=== PATIENT | male | born 1955 | race Caucasian/White ===

== ENCOUNTER 2016-08-19 12:48 | Inpatient (IN) | payer BC ==
[~2016-08-19] VITALS: Ht 180.3 cm; Wt 135.9 kg
[2016-08-19] MEDS ORDERED: ASPIRIN 81 MG TABLET CHEW PO ONE (13:30)
[2016-08-19] MEDS ORDERED: LABETALOL 5MG/ML, 20ML IVPush ONE (13:30)
[2016-08-19] MEDS ORDERED: LABETALOL 5MG/ML, 20ML ONE (13:39)
[2016-08-19] MEDS ORDERED: ASPIRIN 81 MG TABLET CHEW ONE (13:39)
[2016-08-19] MEDS ORDERED: PLEASE ENTER ALLERGIES MC SCH ×2 (14:00)
[2016-08-19 14:19] LABS: BLOOD UREA NITROGEN 18 mg/dL (7-18)
[2016-08-19 14:25] LABS: ASPARTATE AMINO TRANSFERASE 31 U/L (15-37)
[2016-08-19 14:28] LABS: IS PT STATUS REG ER OR PRE ER? YES
[2016-08-19] MEDS ORDERED: OMNIPAQUE 350 MG/ML, 150 ML BOTTLE ONE (15:49)
[2016-08-19] MEDS ORDERED: FUROSEMIDE 20 MG/2 ML IV ONE (16:30)
[2016-08-19] MEDS ORDERED: ONDANSETRON 2MG/ML, 2ML IVPush PRN (17:00)
[2016-08-19] MEDS ORDERED: LABETALOL 5MG/ML, 20ML IVPush PRN (17:00)
[2016-08-19] MEDS ORDERED: FUROSEMIDE 40 MG/4 ML IV ONE (17:00)
[2016-08-19] MEDS ORDERED: ONDANSETRON ODT 4 MG PO PRN (17:00)
[2016-08-19] MEDS ORDERED: FUROSEMIDE 40 MG/4 ML ONE (17:26)
[2016-08-19] MEDS ORDERED: ENOXAPARIN 40 MG/0.4 ML ONE (17:26)
[2016-08-19] MEDS: ENOXAPARIN 40 MG/0.4 ML SQ SCH (17:43)
[2016-08-19] MEDS: METOPROLOL TARTRATE 25 MG TABLET PO SCH (19:57)
[2016-08-19 20:07] VITALS: BP 156/104
[2016-08-19 20:13] VITALS: BP 153/105
[2016-08-19 20:21] LABS: IS PT STATUS REG ER OR PRE ER? NO
[2016-08-20 02:57] VITALS: BP 148/99
[2016-08-20 02:59] LABS: ASPARTATE AMINO TRANSFERASE 30 U/L (15-37); BLOOD UREA NITROGEN 21 mg/dL (7-18)
[2016-08-20 03:05] LABS: IS PT STATUS REG ER OR PRE ER? NO
[2016-08-20 05:38] VITALS: BP 156/106
[2016-08-20] MEDS: METOPROLOL TARTRATE 25 MG TABLET PO SCH ×2 (05:42→17:38)
[2016-08-20] MEDS: ASPIRIN 81 MG TABLET EC PO SCH (05:42)
[2016-08-20 07:52] VITALS: BP 138/95
[2016-08-20] MEDS ORDERED: MAGNESIUM SULFATE PMX 2GM/50ML 50 ML IV ONE (09:30)
[2016-08-20] MEDS ORDERED: REGADENOSON 0.4 MG/5 ML SYRINGE ONE (09:47)
[2016-08-20] MEDS: POTASSIUM CHLORIDE 20 MEQ TAB.ER.PRT PO SCH (13:04)
[2016-08-20] MEDS: FUROSEMIDE 40 MG/4 ML IV SCH (13:05)
[2016-08-20] MEDS: LISINOPRIL 5 MG TABLET PO SCH (13:05)
[2016-08-20] MEDS: INSULIN ASPART 100 UNITS/ML, PEN SQ-INSULIN SCH ×3 (13:13→20:42)
[2016-08-20 14:46] VITALS: BP 136/85
[2016-08-20] MEDS: ENOXAPARIN 40 MG/0.4 ML SQ SCH (17:39)
[2016-08-20 18:25] VITALS: BP 150/93
[2016-08-20] MEDS: SIMVASTATIN 10 MG TABLET PO SCH (20:42)
[2016-08-21] MEDS ORDERED: PNEUMOCOCCAL 23 VACCINE IM-VACC ONE (02:00)
[2016-08-21 02:59] VITALS: BP 122/81
[2016-08-21] MEDS: METOPROLOL TARTRATE 25 MG TABLET PO SCH (05:34)
[2016-08-21] MEDS: ASPIRIN 81 MG TABLET EC PO SCH (05:34)
[2016-08-21 06:02] LABS: ASPARTATE AMINO TRANSFERASE 26 U/L (15-37); BLOOD UREA NITROGEN 23 mg/dL (7-18)
[2016-08-21 06:59] VITALS: BP 138/86
[2016-08-21] MEDS: INSULIN ASPART 100 UNITS/ML, PEN SQ-INSULIN SCH ×4 (07:00→20:36)
[2016-08-21] MEDS ORDERED: LISINOPRIL 5 MG TABLET PO SCH (09:00)
[2016-08-21] MEDS: POTASSIUM CHLORIDE 20 MEQ TAB.ER.PRT PO SCH (10:01)
[2016-08-21] MEDS: LISINOPRIL 5 MG TABLET PO SCH (10:02)
[2016-08-21] MEDS: FUROSEMIDE 40 MG/4 ML IV SCH (10:02)
[2016-08-21 13:14] VITALS: BP 120/87
[2016-08-21] MEDS: CARVEDILOL 6.25 MG TABLET PO SCH (17:22)
[2016-08-21] MEDS: ENOXAPARIN 40 MG/0.4 ML SQ SCH (17:22)
[2016-08-21 19:00] VITALS: BP 124/81
[2016-08-21] MEDS: SIMVASTATIN 10 MG TABLET PO SCH (20:36)
[2016-08-22 02:04] VITALS: BP 123/81
[2016-08-22] MEDS: ASPIRIN 81 MG TABLET EC PO SCH (05:52)
[2016-08-22] MEDS: CARVEDILOL 6.25 MG TABLET PO SCH ×2 (05:52→17:33)
[2016-08-22] MEDS: INSULIN ASPART 100 UNITS/ML, PEN SQ-INSULIN SCH ×4 (08:13→21:00)
[2016-08-22] MEDS: LISINOPRIL 5 MG TABLET PO SCH (08:23)
[2016-08-22] MEDS: FUROSEMIDE 40 MG/4 ML IV SCH (08:23)
[2016-08-22] MEDS: POTASSIUM CHLORIDE 20 MEQ TAB.ER.PRT PO SCH (08:23)
[2016-08-22 08:50] VITALS: BP 122/84
[2016-08-22 13:42] VITALS: BP 120/77
[2016-08-22] MEDS: ENOXAPARIN 40 MG/0.4 ML SQ SCH (17:33)
[2016-08-22 19:23] VITALS: BP 128/78
[2016-08-22] MEDS: SIMVASTATIN 10 MG TABLET PO SCH (21:36)
[2016-08-23 02:53] VITALS: BP 134/78
[2016-08-23 05:24] LABS: BLOOD UREA NITROGEN 24 mg/dL (7-18)
[2016-08-23] MEDS: ASPIRIN 81 MG TABLET EC PO SCH (06:24)
[2016-08-23] MEDS: CARVEDILOL 6.25 MG TABLET PO SCH ×2 (06:25→17:14)
[2016-08-23] MEDS: INSULIN ASPART 100 UNITS/ML, PEN SQ-INSULIN SCH ×4 (07:01→21:00)
[2016-08-23 08:00] VITALS: BP 137/101
[2016-08-23] MEDS: FUROSEMIDE 40 MG/4 ML IV SCH (09:06)
[2016-08-23] MEDS: POTASSIUM CHLORIDE 20 MEQ TAB.ER.PRT PO SCH (09:06)
[2016-08-23] MEDS: LISINOPRIL 5 MG TABLET PO SCH (09:07)
[2016-08-23 14:30] VITALS: BP 155/101
[2016-08-23] MEDS: FUROSEMIDE 40 MG TABLET PO SCH (17:15)
[2016-08-23] MEDS: ENOXAPARIN 40 MG/0.4 ML SQ SCH (17:17)
[2016-08-23 20:08] VITALS: BP 112/72
[2016-08-23] MEDS: SIMVASTATIN 10 MG TABLET PO SCH (21:00)
[2016-08-24] MEDS ORDERED: IBUPROFEN 200 MG TABLET PO PRN
[2016-08-24 02:33] VITALS: BP 137/84
[2016-08-24] MEDS: CARVEDILOL 6.25 MG TABLET PO SCH (06:45)
[2016-08-24] MEDS: ASPIRIN 81 MG TABLET EC PO SCH (06:45)
[2016-08-24] MEDS: INSULIN ASPART 100 UNITS/ML, PEN SQ-INSULIN SCH ×2 (09:20→11:25)
[2016-08-24 09:30] VITALS: BP 113/77
[2016-08-24] MEDS: LISINOPRIL 5 MG TABLET PO SCH (09:33)
[2016-08-24] MEDS: POTASSIUM CHLORIDE 20 MEQ TAB.ER.PRT PO SCH (09:33)
[2016-08-24] MEDS: FUROSEMIDE 40 MG TABLET PO SCH (09:34)
[2016-08-24] MEDS ORDERED: FURO40TA6 PO (11:00)
[2016-08-24] MEDS ORDERED: LISI5TAB7 PO (11:00)
[2016-08-24] MEDS ORDERED: POTA20TA6 PO (11:00)
[2016-08-24] MEDS ORDERED: CARV6.2512 PO (11:00)
[2016-08-24] MEDS ORDERED: SIMV10TA3 PO (11:00)
[2016-08-24 12:35] VITALS: BP 128/86
== END 2016-08-24 17:02 | disposition home health service (06) | DRG 291 ==
LOC: ED 15:14 → EDIP 16:09 → 5SO 18:32 → DCLOUNGE 08-24 16:33
PROVIDERS: ADMIT Internal Medicine; ATTEND Internal Medicine
DX: I11.0 Hypertensive heart disease with heart failure (principal); J96.01 Acute respiratory failure with hypoxia; J98.11 Atelectasis; Z68.41 Body mass index [BMI] 40.0-44.9, adult; E44.0 Moderate protein-calorie malnutrition; I50.41 Acute combined systolic (congestive) and diastolic (congestive) heart failure; I44.7 Left bundle-branch block, unspecified; E66.01 Morbid (severe) obesity due to excess calories; E83.42 Hypomagnesemia; I27.2 Other secondary pulmonary hypertension; R73.03 Prediabetes; R10.13 Epigastric pain; J44.9 Chronic obstructive pulmonary disease, unspecified; Z90.49 Acquired absence of other specified parts of digestive tract; Z88.5 Allergy status to narcotic agent; Z80.9 Family history of malignant neoplasm, unspecified; Z87.891 Personal history of nicotine dependence
CPT/HCPCS: 36415; 71010; 71275; 78452; 80048; 80053; 80061; 81003; 82962; 83036; 83735; 83880; 84443; 84484; 85025; 87324; 90732; 93005; 93017; 93970; 96374; C8929; J1650; J1940; J2785; Q9967; A9502; C9898; J3475

== ENCOUNTER 2020-04-01 13:53 | Inpatient (IN) | payer BC, OTHER ==
[~2020-04-01] VITALS: Ht 180.3 cm; Wt 125.4 kg
[~2020-04-01 13:53] MED LIST: CARV6.2512 PO; FURO40TA6 PO; LISI5TAB7 PO; POTA20TA6 PO; SIMV10TA18 PO
--- NOTE | 2020-04-01 14:24 | NUR ---
Assumed care of patient. C/O abdominal distention and SOB on exertion. Hx CHF, but has been off meds for 3 years. C/O bilateral pedal edema. Placed on NIBP, pulse ox and cardiac specialist. Family member at bedside. Will continue to monitor.
[2020-04-01 14:49] LABS: BASOPHILS % (AUTO) 1 % (0-1); EOSINOPHILS % (AUTO) 3 % (1-7); LYMPHOCYTES % (AUTO) 29 % (22-44); MEAN CORPUSCULAR HEMOGLOBIN 31.1 pg (27.5-34.5); MEAN CORPUSCULAR HGB CONC 33.8 g/dL (33.2-36.2); MEAN PLATELET VOLUME 7.4 fL (7.4-10.4); MONOCYTES % (AUTO) 9 % (2-9); NEUTROPHILS % (AUTO) 58 % (42-75); PLATELET COUNT 183 x10^3/uL (130-400); RED BLOOD COUNT 5.37 x10^6/uL (4.38-5.82); RED CELL DISTRIBUTION WIDTH 14.7 % (9.4-14.8)
--- NOTE | 2020-04-01 14:53 | NUR ---
Report to SAHIL Black.
--- NOTE | 2020-04-01 14:55 | NUR ---
Report from SAHIL Duarte. Assumed care.
[2020-04-01 14:59] LABS: ALANINE AMINOTRANSFERASE 22 U/L (12-78); ALBUMIN 2.9 g/dL (3.4-5.0); ANION GAP 4 mmol/L (5-15); CALCIUM 8.6 mg/dL (8.5-10.1); CHLORIDE 108 mmol/L (98-107); CREATININE 1.09 mg/dL (0.7-1.3)
[2020-04-01 15:03] LABS: ALKALINE PHOSPHATASE 78 U/L (45-117); BILIRUBIN,TOTAL 1.2 mg/dL (0.2-1.0); TOTAL PROTEIN 7.2 g/dL (6.4-8.2)
[2020-04-01 15:13] LABS: MD NO
--- NOTE | 2020-04-01 15:29 | NUR ---
Pts room air sat dropped to 89% on room air. Pt placed back on 02 nasal cannula 2 L
[2020-04-01] MEDS ORDERED: FUROSEMIDE 40 MG/4 ML ONE (15:52)
[2020-04-01] MEDS ORDERED: SODIUM CHLORIDE FLUSH 10ML SYR IVF ONE (16:00)
[2020-04-01] MEDS ORDERED: FUROSEMIDE 40 MG/4 ML IV ONE (16:00)
--- NOTE | 2020-04-01 16:19 | NUR ---
RN at bedside. IV started, Lasix given.
--- NOTE | 2020-04-01 16:37 | NUR ---
Admitting MD at bedside.
[2020-04-01] MEDS ORDERED: BACLOFEN 10 MG TABLET PO PRN (17:00)
[2020-04-01] MEDS ORDERED: ONDANSETRON ODT 4 MG PO PRN (17:00)
[2020-04-01] MEDS ORDERED: GUAIFENESIN/DM 200-20MG, 10ML UDC PO PRN (17:00)
[2020-04-01] MEDS ORDERED: BUTALB/APAP/CAFFEINE 50MG/325MG/40MG PO PRN ×2 (17:00)
[2020-04-01] MEDS ORDERED: LABETALOL 5MG/ML, 20ML IVPush PRN (17:00)
[2020-04-01] MEDS ORDERED: ENALAPRILAT 1.25 MG/ML, 2ML IVPush PRN (17:00)
[2020-04-01] MEDS ORDERED: ACETAMINOPHEN 325 MG TABLET PO PRN (17:00)
[2020-04-01] MEDS ORDERED: ONDANSETRON 2MG/ML, 2ML IVPush PRN (17:00)
[2020-04-01] MEDS: FUROSEMIDE 40 MG/4 ML IV SCH (17:00)
[2020-04-01] MEDS ORDERED: ENOXAPARIN 40 MG/0.4 ML ONE (18:15)
[2020-04-01] MEDS: ENOXAPARIN 40 MG/0.4 ML SQ SCH ×2 (18:18→18:47)
--- NOTE | 2020-04-01 20:20 | NUR ---
Dinner delivered to pt.
[2020-04-01] MEDS ORDERED: MELATONIN 5 MG TABLET ONE (21:08)
[2020-04-01] MEDS: MELATONIN 5 MG TABLET PO SCH (21:09)
--- NOTE | 2020-04-01 21:11 | NUR ---
Melatonin given, lights turned down, readjusted bed for pt. Pt ate sandwich and fruit for dinner. Denies needs at this time.
--- NOTE | 2020-04-01 21:43 | NUR ---
BREAK RN FOR PRIMARY RN ALEX. PT RESTING IN POSITION OF COMFORT. WATCHING TV. PULSE OX 90-92% RA, VSS. FALL PRECAUTIONS IN PLACE. SIDE RAILS UPX2. WILL CONTINUE TO MONITOR. PT REMAINS TELE HOLD IN ED, AWAITING ROOM ASSIGNMENT ON FLOOR. CALL LIGHT IN HAND. DENIES NEED TO USE RESTROOM
--- NOTE | 2020-04-01 22:23 | NUR ---
BEDSIDE REPORT AND TRANSFER OF CARE BACK TO PRIMARY SAHIL JOHNSON AT THIS TIME.
--- NOTE | 2020-04-01 23:08 | NUR ---
Pt up to bedside urinal
--- NOTE | 2020-04-01 23:13 | NUR ---
RN at bedside. Pt denies needs at this time.
[2020-04-01 23:14] LABS: TROPONIN I 0.024 ng/mL (0.000-0.045)
--- NOTE | 2020-04-01 23:51 | NUR ---
Pt resting, eyes closed, equal chest rise and fall noted.
--- NOTE | 2020-04-01 23:52 | NUR ---
IV removed, hemostasis achieved, IV catheter tip intact.
--- NOTE | 2020-04-02 00:10 | NUR ---
RN at bedside. Lasix given. Antibiotics infusing. Pt provided urinal and instructed to use call light to call for assistance.
--- NOTE | 2020-04-02 00:14 | NUR ---
Pt's 02 sat dropped to 84% on 3L nasal cannula- RN at bedside, pt sleeping, snowing, breathing out of mouth. Pt awakened easily. Increased oxygen to 4L and pt awake, 02 increased to 97%
--- NOTE | 2020-04-02 00:19 | NUR ---
Replaced nasal cannula with oxymask.
--- NOTE | 2020-04-02 01:26 | NUR ---
Pt resting, eyes closed. Equal chest rise and fall noted.
--- NOTE | 2020-04-02 02:32 | NUR ---
Pt resting, eyes closed. Equal chest rise and fall noted.
--- NOTE | 2020-04-02 05:46 | NUR ---
PT RESTING IN BED, PT HAS NO COMPLAINTS AT THIS TIME. PT ON MONITOR WITH PT VSS
[2020-04-02 06:06] LABS: BASOPHILS % (AUTO) 1 % (0-1); EOSINOPHILS % (AUTO) 3 % (1-7); LYMPHOCYTES % (AUTO) 32 % (22-44); MEAN CORPUSCULAR HEMOGLOBIN 31.2 pg (27.5-34.5); MEAN CORPUSCULAR HGB CONC 33.6 g/dL (33.2-36.2); MEAN PLATELET VOLUME 7.5 fL (7.4-10.4); MONOCYTES % (AUTO) 10 % (2-9); NEUTROPHILS % (AUTO) 54 % (42-75); PLATELET COUNT 201 x10^3/uL (130-400); RED BLOOD COUNT 5.71 x10^6/uL (4.38-5.82)
[2020-04-02 06:08] LABS: MD NO
[2020-04-02 06:24] LABS: CHLORIDE 105 mmol/L (98-107)
[2020-04-02 06:29] LABS: ALBUMIN 3.4 g/dL (3.4-5.0); ANION GAP 4 mmol/L (5-15); CALCIUM 9.2 mg/dL (8.5-10.1); CREATININE 1.28 mg/dL (0.7-1.3)
--- NOTE | 2020-04-02 07:04 | NUR ---
REC'D REPORT FROM SAHIL ALBA. PT SLEEPING IN BED. VSS. OXYGEN IN PLACE
[2020-04-02] MEDS ORDERED: FUROSEMIDE 40 MG/4 ML ONE (07:43)
[2020-04-02] MEDS: FUROSEMIDE 40 MG/4 ML IV SCH ×2 (07:48→18:20)
--- NOTE | 2020-04-02 07:48 | NUR ---
pt states he is comfortable in the ER [facility] and declines a hospital bed at this time. pt resting in bed. tv on. vss.
--- NOTE | 2020-04-02 08:08 | NUR ---
sent request to [facility] for vasotec per admitting doc request.
--- NOTE | 2020-04-02 08:12 | NUR ---
pt taken to stress test before medication could be sent down.
--- NOTE | 2020-04-02 08:15 | NUR ---
rec'd call from [facility]. vasotec is backordered. told to use labetelol. will recheck bp upon return from stress test.
[2020-04-02] MEDS ORDERED: REGADENOSON 0.4 MG/5 ML SYRINGE ONE (08:21)
[2020-04-02 08:32] LABS: FREE T4 (FREE THYROXINE) 0.91 ng/dL (0.76-1.46)
[2020-04-02] MEDS: SENNA/DOCUSATE TABLET PO SCH (09:00)
--- NOTE | 2020-04-02 09:50 | NUR ---
returns from stress test
--- NOTE | 2020-04-02 09:57 | NUR ---
pt was not placed back on oxygen after returning from stress test. room air sat was 84%
--- NOTE | 2020-04-02 09:58 | NUR ---
pt given meal tray.
--- NOTE | 2020-04-02 12:01 | NUR ---
PT SITTING AT BEDSIDE ON PHONE
[2020-04-02 13:48] VITALS: BP 138/87
[2020-04-02 18:19] VITALS: BP 126/84
[2020-04-02 19:42] VITALS: BP 137/92
[2020-04-02] MEDS: MELATONIN 5 MG TABLET PO SCH (20:32)
[2020-04-03 02:42] VITALS: BP 124/80
[2020-04-03 07:01] VITALS: BP 137/87
[2020-04-03] MEDS: SENNA/DOCUSATE TABLET PO SCH (09:00)
[2020-04-03 09:51] VITALS: BP 145/97
[2020-04-03] MEDS: FUROSEMIDE 40 MG/4 ML IV SCH ×2 (09:52→18:10)
[2020-04-03 14:44] VITALS: BP 144/91
[2020-04-03] MEDS: ENOXAPARIN 40 MG/0.4 ML SQ SCH (17:00)
[2020-04-03 18:06] VITALS: BP 144/93
[2020-04-03] MEDS: LISINOPRIL 5 MG TABLET PO SCH (18:09)
[2020-04-03] MEDS: CARVEDILOL 3.125 MG TABLET PO SCH (18:09)
[2020-04-03 18:35] VITALS: BP 149/97
[2020-04-03] MEDS: MELATONIN 5 MG TABLET PO SCH (19:50)
[2020-04-04 00:42] VITALS: BP 115/75
[2020-04-04] MEDS: CARVEDILOL 3.125 MG TABLET PO SCH ×2 (05:27→17:02)
[2020-04-04 07:47] VITALS: BP 107/63
[2020-04-04] MEDS: FUROSEMIDE 40 MG/4 ML IV SCH ×3 (08:30→17:02)
[2020-04-04] MEDS: SENNA/DOCUSATE TABLET PO SCH (08:30)
[2020-04-04] MEDS: LISINOPRIL 5 MG TABLET PO SCH (08:31)
[2020-04-04] MEDS: SPIRONOLACTONE 25 MG TABLET PO SCH (08:31)
[2020-04-04 14:07] VITALS: BP 104/73
[2020-04-04] MEDS: ENOXAPARIN 40 MG/0.4 ML SQ SCH (16:39)
[2020-04-04 20:26] VITALS: BP 93/66
[2020-04-04] MEDS: MELATONIN 5 MG TABLET PO SCH (21:00)
[2020-04-05 03:47] VITALS: BP 130/84
[2020-04-05] MEDS: CARVEDILOL 3.125 MG TABLET PO SCH (05:54)
[2020-04-05 06:34] LABS: CREATININE 1.34 mg/dL (0.7-1.3)
[2020-04-05 08:21] VITALS: BP 132/91
[2020-04-05] MEDS: FUROSEMIDE 40 MG/4 ML IV SCH (08:39)
[2020-04-05] MEDS: SPIRONOLACTONE 25 MG TABLET PO SCH (08:39)
[2020-04-05] MEDS: SENNA/DOCUSATE TABLET PO SCH (08:40)
[2020-04-05] MEDS: LISINOPRIL 5 MG TABLET PO SCH (08:40)
[2020-04-05] MEDS ORDERED: LISI5TAB7 PO (12:06)
[2020-04-05] MEDS ORDERED: SPIR25TA PO (12:06)
[2020-04-05] MEDS ORDERED: FURO40TA6 PO (12:06)
[2020-04-05] MEDS ORDERED: CARV3.1212 PO (12:06)
[2020-04-05 13:47] LABS: ALANINE AMINOTRANSFERASE 24 U/L (12-78); ALBUMIN 3.2 g/dL (3.4-5.0); ANION GAP 4 mmol/L (5-15); CALCIUM 9.1 mg/dL (8.5-10.1); CHLORIDE 100 mmol/L (98-107); CHOLESTEROL, TOTAL 183 mg/dL (140-239); CREATININE 1.25 mg/dL (0.7-1.3); TRIGLYCERIDES 244 mg/dL (50-200); VLDL CHOLESTEROL 49 mg/dL (0-25)
[2020-04-05 13:49] LABS: BASOPHILS % (AUTO) 1 % (0-1); EOSINOPHILS % (AUTO) 3 % (1-7); LYMPHOCYTES % (AUTO) 29 % (22-44); MEAN CORPUSCULAR HGB CONC 33.9 g/dL (33.2-36.2); MEAN PLATELET VOLUME 7.8 fL (7.4-10.4); MONOCYTES % (AUTO) 9 % (2-9); NEUTROPHILS % (AUTO) 58 % (42-75); PLATELET COUNT 255 x10^3/uL (130-400); RED BLOOD COUNT 5.81 x10^6/uL (4.38-5.82); RED CELL DISTRIBUTION WIDTH 14.8 % (9.4-14.8)
[2020-04-05 13:52] LABS: ALKALINE PHOSPHATASE 91 U/L (45-117); BILIRUBIN,TOTAL 2.3 mg/dL (0.2-1.0); CHOL/HDL RATIO 4.7; HDL CHOL % 21 % (26-37); HDL CHOLESTEROL (DIRECT) 39 mg/dL (40-60); LDL CHOLESTEROL,CALCULATED 95 mg/dL (54-169); LDL/HDL RATIO 2.4 (0.5-3.0); TOTAL PROTEIN 8.1 g/dL (6.4-8.2)
[2020-04-05 13:58] LABS: MD NO
[2020-04-05] MEDS ORDERED: ATOR20TA37 PO (14:51)
[2020-04-05] MEDS ORDERED: POTA8CAP20 PO (14:52)
[2020-04-05 15:10] VITALS: BP 118/76
== END 2020-04-05 16:55 | disposition home or self-care (01) | DRG 292 ==
LOC: ED 16:26 → EDIP 16:38 → 5SO 04-02 13:12
PROVIDERS: ADMIT Hospitalist; ATTEND Hospitalist
DX: I11.0 Hypertensive heart disease with heart failure (principal); E44.1 Mild protein-calorie malnutrition; R17 Unspecified jaundice; E66.01 Morbid (severe) obesity due to excess calories; R73.9 Hyperglycemia, unspecified; I50.23 Acute on chronic systolic (congestive) heart failure; E78.5 Hyperlipidemia, unspecified; Z91.14 Patient's other noncompliance with medication regimen; Z68.38 Body mass index [BMI] 38.0-38.9, adult; Z88.5 Allergy status to narcotic agent
CPT/HCPCS: 36415; 84145; 96374; 99285; C8929; 71045; 78452; 80053; 80061; 80069; 82565; 83735; 83880; 84100; 84439; 84443; 84481; 84484; 85025; 93005; 93017; G0378; J1650; J1940; J2785; Q9957; A9502